=== PATIENT | female | born 1965 | race Caucasian/White ===

== ENCOUNTER 2017-11-21 05:49 | Day surgery (SDC) | payer OTHER ==
[~2017-11-21 05:49] MED LIST: Buffered Lidocaine 0.9% SYRIN* 5 ML/SYR SYRINGE INTRADERM ONE
[2017-11-21] MEDS ORDERED: Famotidine TAB* 20 MG ONE (05:58)
[2017-11-21] MEDS ORDERED: Buffered Lidocaine 0.9% SYRIN* 5 ML/SYR SYRINGE ONE (05:58)
[2017-11-21] MEDS ORDERED: ceFAZolin 2 GM PREMIX (*) 2 GM/50 ML BAG IVPB ONE (05:58)
[2017-11-21] MEDS ORDERED: Dexamethasone IV* 4 MG/ML 1 ML (4 MG) ONE (05:58)
[2017-11-21] MEDS ORDERED: Famotidine TAB* 20 MG PO ONE (06:00)
[2017-11-21] MEDS ORDERED: Dexamethasone IV* 4 MG/ML 1 ML (4 MG) IV SLOW PU ONE (06:00)
[2017-11-21] MEDS ORDERED: Propofol* 10 MG/ML 20 ML BTL IV PUSH ONE (06:54)
[2017-11-21] MEDS ORDERED: Atracurium* 10 MG/ML 10 ML VIAL ONE (06:54)
[2017-11-21] MEDS ORDERED: Ondansetron INJ* 2 MG/ML VIAL ONE (06:54)
[2017-11-21] MEDS ORDERED: Midazolam* 1 MG/ML 5 ML VIAL (5 MG) ONE (06:54)
[2017-11-21] MEDS ORDERED: fentaNYL* 50 MCG/ML 5 ML VIAL (250 MCG VIAL) ONE (06:54)
[2017-11-21] MEDS ORDERED: Lidocaine 2% PF * 5 ML VIAL ONE (06:55)
[2017-11-21] MEDS ORDERED: Metoprolol Tartrate IV* 1 MG/ML 5 ML VIAL ONE (07:15)
[2017-11-21] MEDS ORDERED: fentaNYL* 50 MCG/ML 2 ML VIAL (100 MCG VIAL) ONE ×3 (07:15→09:53)
[2017-11-21] MEDS ORDERED: Ketorolac INJ* 30 MG/ML 1 ML VIAL ONE (07:19)
[2017-11-21] MEDS ORDERED: Bupivacaine 0.25% SDV* 30 ML ONE (07:19)
[2017-11-21] MEDS ORDERED: DiMENhydriNATE IV* 50 MG/ML VIAL IV PUSH PRN (07:49)
[2017-11-21] MEDS ORDERED: Ondansetron INJ* 2 MG/ML VIAL IV PRN (07:49)
[2017-11-21] MEDS ORDERED: HYDROmorphone INJ* 1 MG/ML CARPUJECT SYRINGE IV PRN (07:49)
[2017-11-21] MEDS ORDERED: Naloxone* 0.4 MG/ML 1 ML VIAL IV PRN (07:49)
[2017-11-21] MEDS ORDERED: EPHEDrine (Pressors)* 50 MG/ML VIAL ONE (08:12)
[2017-11-21] MEDS ORDERED: Phenylephrine INJ* 10 MG/ML 1 ML VIAL (10 MG) ONE (08:12)
[2017-11-21] MEDS ORDERED: oxyCODONE/Acetamin 5/325 MG* TAB ONE (09:53)
[2017-11-21] MEDS: fentaNYL* 50 MCG/ML 2 ML VIAL (100 MCG VIAL) IV PRN ×2 (09:54→10:04)
[2017-11-21] MEDS: oxyCODONE/Acetamin 5/325 MG* TAB PO PRN ×2 (09:54→09:55)
--- NOTE | 2017-11-21 10:18 | RAD ---
INDICATION: Right hip arthroscopic labral repair, osteoplasty, right hip pain, M 25.551 COMPARISONS: November 06, 2017 TECHNIQUE: Fluoroscopy was provided for a surgical procedure. Total fluoroscopy time is: 83.3 seconds FINDINGS: Spot images demonstrate a needle within the joint space of the right hip with gaseous distention of the joint space. IMPRESSION: FLUOROSCOPY WAS PROVIDED FOR A SURGICAL PROCEDURE CPT II Codes: G9500
[2017-11-21 10:35] VITALS: BP 155/79
--- NOTE | 2017-11-28 23:21 | OP ---
CC: Primary Care Physician, ?* DATE OF OPERATION: 11/21/17 - SDS DATE OF : 69 SURGEON: Brian Sarah MD STOCK RAISER: OLIVERIO Yip ANESTHESIOLOGIST: Dr. Raphael. ANESTHESIA: General. 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 OPERATIVE PROCEDURE: Right hip arthroscopy with labral repair and cam osteoplasty. COMPLICATIONS: None. TRACTION TIME: Approximately 1-1/2 hours. IMPLANTS: Two [employer]andra [employer] Nephew Q-FIX anchors. ESTIMATED BLOOD LOSS: Minimal. INDICATIONS: Flor is a 52-year-old female who has had persistent bilateral hip pain. She has minimal arthritic changes. She has evidence of cam and pincer deformity with an unstable labral tear. She responded well to an intraarticular injection, but she has failed conservative treatment including physical therapy, antiinflammatories. Risks and benefits of surgery were discussed at length to include but not limited to bleeding, infection, damage to nerves, vessels, surrounding structures, wound nonhealing, persistent pain, need for further surgery, scarring, incomplete relief of symptoms, the risk of anesthesia, traction injury, risk of DVT, heterotropic ossification, fracture, stiffness, persistent pain, she has elected to proceed. OPERATIVE FINDINGS: The traction provided good access to the hip without evidence of underlying hyperlaxity. Arthroscopic exam showed labral tearing in the anterior portion of the labrum at 10 o'clock and 2 o'clock position with positive wave sign of the acetabular cartilage. The acetabulum had grade 1 and 2 changes. The femoral head had grade 0 to 1 changes. The quality of the labrum most anteriorly was good quality but more laterally the tissue could not hold stitches and the part of it need to be debrided. There was small cam deformity as well as a pincer overgrowth. DESCRIPTION OF PROCEDURE: The patient was greeted in the preoperative area by the attending surgeon. Correct extremity was marked and the consent was confirmed. The patient was brought back to the operating suite where she was placed in supine position on operating table. She then underwent general anesthesia and endotracheal intubation after which she was placed in well- padded boots in appropriate position on Alejandra and [employer] hip traction table with a large well- padded perineal post. Gentle traction was placed in left leg to balance the pelvis. The operative leg was then placed in a dynamic leg rubio and placed in slight flexion. Gentle internal rotation and neutral adduction to bring the femoral neck parallel to the floor to facilitate atraumatic access. The right hip was then prepped and draped in usual sterile fashion beginning pre-scrubbed with chlorhexidine soap, scrub and alcohol wipe. After miniature surgical pause, gross traction was applied to the operative extremity under sterile condition. An 18-gauge spinal needle was used to break the acetabular seal. Once this was done, fine traction was applied to distract the joint to about 1.5 cm as confirmed by the C-arm. The patient was protected with lead throughout this case. Traction was then taken down once the seal had been broken and the right hip was further prepped and draped with a final prep with ChloraPrep. After appropriate surgical pause indicating site, side, procedure, administration of antibiotics, traction was brought back up and the time-out was started. Total traction time was approximately between an hour and an hour and thirty minutes. First, the anterior peritrochanteric portal was accessed using a long spinal needle. This confirmed under fluoroscopy. The cannula and then arthroscope were then introduced in the joint atraumatically. The mid anterior portal was then made in a similar fashion using needle localization. Once the portals were placed, the trocar was advanced atraumatically into the joint. A 70- degree scope was used to identify the head and the joint. Portals were switched to make sure that no portal was disrupting the labrum or through the labrum. The above changes were noted with a wave sign, as well as grade 1 changes to the acetabulum and grade 1 to 2 changes to the femoral head with minimal arthritis. The labral tear was identified. It was found to have moderate quality tissue particularly anteriorly. The levelock blade was then brought into the anterior portal, capsulotomy was begun. The pump was set to 40 mmHg to provide stable consistent pressure throughout the entirety of the case. Synovectomy was carried out using full radius shaver as well as the electrocautery device to maintain hemostasis. The rim of the acetabulum was carefully visualized and there was evidence of the labral tear which extended far laterally. The capsular reflection was then peeled back. Labrum was then carefully probed and incision was made to make a repair. First, laterally the electrocautery device was used to remove the pincer overgrowth and do rim trimming. The labrum was protected during this part. One 1.8 mm Q-FIX anchor was then placed at this point after the crossover sign was removed and a suture was passed through the labrum. This tissue quality was not very good but it was still secured. A second one was placed more anteriorly and this had a much better quality tissue. This helped to restore the labrum appropriately. Upon visualization, I was not happy with the more laterally placed suture and the tissue quality was not holding very well. The suture was removed and then the labrum was debrided back but the remainder of the labrum remained intact. Once this was complete, the traction was removed and attention was directed to the cam. Traction was removed from the hip which was confirmed through the C-arm and arthroscopically. The capsule was then carefully T'd so that the cam could be exposed. Using preoperative templating as the guidance, femoral neck osteoplasty was done using a 5.5 mm barak. The resection was carried out superiorly to laterally, inferiorly to medially. This was confirmed and monitored using C-arm to make sure there is elimination as much of notified impingement as possible. The femoral head and neck angle were normalized. Care was taken to prevent iatrogenic injury to the vessels. Post resection, dynamic testing was done under direct visualization arthroscopically to make sure bony impingement was removed. At this point, meticulous hemostasis was obtained. After evacuation of fluid and the soft tissue, the spinal needle was placed under arthroscopic visualization to place Toradol with injectable saline. The wounds were then copiously irrigated with sterile saline. Skin incisions were closed in layers with 2-0 Vicryl and 3-0 nylon. The portals were injected with 0.25% Marcaine plain for postoperative pain control. She was awoken from anesthesia, transferred to PACU in stable condition. POSTOPERATIVE PLAN: She will be 50% weightbearing for 2 weeks. No hip flexion past 90 degrees for the first two weeks. GABRIEL stockings worn at all times. We will remove the dressings on postop day 3. DVT prophylaxis was considered, but deferred due to no previous personal or family history. She will be discharged on Naprosyn 500 mg p.o. b.i.d. for 30 days and Percocet as needed. I will see the patient back in 10 to 14 days with x-rays of her hip including AP and lateral. [id number]/[facility] #: [id number] MTDD
== END 2017-11-21 10:53 | disposition home or self-care (01) ==
LOC: OR 05:49
PROVIDERS: ATTEND Orthopaedic Surgery
DX: M24.851 Other specific joint derangements of right hip, not elsewhere classified (principal); M16.11 Unilateral primary osteoarthritis, right hip; F41.8 Other specified anxiety disorders; F31.9 Bipolar disorder, unspecified; F10.21 Alcohol dependence, in remission; F19.11 Other psychoactive substance abuse, in remission
CPT/HCPCS: 76001; A9270-GY; J0690; J1100; J1885; J2250; J2405; J2704; J3010; J3490